=== PATIENT | male | born 1960 | race Caucasian/White ===

== ENCOUNTER → 2019-07-27 08:29 | Outpatient (BNVA) | payer MEDICARE, MEDICAID, SELFPAY | PROVIDERS: Family Provider Internal Medicine; PCP Internal Medicine; Visit Provider Nurse Practitioner | DX: F20.5 Residual schizophrenia (principal) | CPT/HCPCS: 99203 ==

== ENCOUNTER → 2020-01-11 07:42 | Outpatient (BNVA) | payer MEDICARE, MEDICAID, SELFPAY | PROVIDERS: Family Provider Internal Medicine; PCP Internal Medicine; Visit Provider Nurse Practitioner | DX: F20.5 Residual schizophrenia (principal) | CPT/HCPCS: 99213 ==

== ENCOUNTER → 2020-07-27 07:43 | Outpatient (BNVA) | payer MEDICARE, MEDICAID, SELFPAY | PROVIDERS: Family Provider Internal Medicine; PCP Internal Medicine; Visit Provider Nurse Practitioner | DX: F20.5 Residual schizophrenia (principal) | CPT/HCPCS: 99214 ==

== ENCOUNTER → 2021-01-23 08:12 | Outpatient (BNVA) | payer MEDICARE, MEDICAID, SELFPAY | PROVIDERS: Family Provider Internal Medicine; PCP Internal Medicine; Visit Provider Nurse Practitioner | DX: F20.5 Residual schizophrenia (principal); Z79.899 Other long term (current) drug therapy | CPT/HCPCS: 99214 ==

== ENCOUNTER → 2021-07-02 07:14 | Outpatient (BNVA) | payer MEDICARE, MEDICAID, SELFPAY | PROVIDERS: Family Provider Internal Medicine; PCP Internal Medicine; Visit Provider Nurse Practitioner | DX: F20.5 Residual schizophrenia (principal); Z79.899 Other long term (current) drug therapy | CPT/HCPCS: 99214 ==

== ENCOUNTER → 2021-11-19 11:27 | Outpatient (BNVA) | payer MEDICARE, MEDICAID, OTHER, SELFPAY | PROVIDERS: Family Provider Internal Medicine; PCP Internal Medicine; Visit Provider Podiatrist Foot & Ankle Surgery | DX: E11.42 Type 2 diabetes mellitus with diabetic polyneuropathy (principal); L60.3 Nail dystrophy; I73.9 Peripheral vascular disease, unspecified; M21.41 Flat foot [pes planus] (acquired), right foot; M21.42 Flat foot [pes planus] (acquired), left foot; M20.41 Other hammer toe(s) (acquired), right foot; M20.42 Other hammer toe(s) (acquired), left foot; Z79.84 Long term (current) use of oral hypoglycemic drugs | CPT/HCPCS: 11721; 99203; 99204 ==

== ENCOUNTER → 2021-11-27 08:35 | Outpatient (BNVA) | payer MEDICARE, MEDICAID, OTHER, SELFPAY | PROVIDERS: Family Provider Internal Medicine; PCP Internal Medicine; Visit Provider Nurse Practitioner | DX: Z79.899 Other long term (current) drug therapy (principal); E11.42 Type 2 diabetes mellitus with diabetic polyneuropathy | CPT/HCPCS: 80061; 83036 ==

== ENCOUNTER → 2022-04-30 14:57 | Outpatient (BNVA) | payer MEDICARE, MEDICAID, SELFPAY | PROVIDERS: Family Provider Internal Medicine; PCP Internal Medicine; Visit Provider Podiatrist Foot & Ankle Surgery | DX: E11.42 Type 2 diabetes mellitus with diabetic polyneuropathy (principal); E11.8 Type 2 diabetes mellitus with unspecified complications; L60.3 Nail dystrophy; I73.9 Peripheral vascular disease, unspecified; M21.41 Flat foot [pes planus] (acquired), right foot; M21.42 Flat foot [pes planus] (acquired), left foot; M20.41 Other hammer toe(s) (acquired), right foot; M20.42 Other hammer toe(s) (acquired), left foot | CPT/HCPCS: 11721 ==

== ENCOUNTER → 2022-08-27 10:08 | Outpatient (BNVA) | payer MEDICARE, MEDICAID, SELFPAY | PROVIDERS: Family Provider Internal Medicine; PCP Internal Medicine; Visit Provider Podiatrist Foot & Ankle Surgery | DX: E11.42 Type 2 diabetes mellitus with diabetic polyneuropathy (principal); L60.3 Nail dystrophy; I73.9 Peripheral vascular disease, unspecified; M21.41 Flat foot [pes planus] (acquired), right foot; M21.42 Flat foot [pes planus] (acquired), left foot; M20.41 Other hammer toe(s) (acquired), right foot; M20.42 Other hammer toe(s) (acquired), left foot; Z79.84 Long term (current) use of oral hypoglycemic drugs | CPT/HCPCS: 11721 ==

== ENCOUNTER 2022-10-01 15:08 | Emergency (ER) | payer MEDICARE, MEDICAID, SELFPAY ==
[2022-10-01 15:23] VITALS: BP 194/82; PULSE 92; RESP 18; TEMP 36.8; O2SAT 98; BMI 46.7
--- NOTE | 2022-10-01 15:32 | XR_ITS ---
WS: [id number] XR chest 1V portable [id number] REASON FOR EXAM: Atypical chest pain FINDINGS: Moderate tortuosity and ectasia of the thoracic aorta without aneurysmal dilatation. The heart is not enlarged. Calcified granulomatous disease bilaterally. No active pulmonary parenchymal or pleural disease is noted. Mild scoliosis of the thoracic cervical spine with significant degenerative spondylosis. XR/XR chest 1V portable [id number] IMPRESSION: No acute chest abnormality.
--- NOTE | 2022-10-01 15:32 | ECG_ITS ---
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 Measurements Intervals [place] Rate: 92 P: -20 [place]: 145 QRS: -3 QRSD: 124 T: 63 QT: 372 QTc: 461 Interpretive Statements SINUS RHYTHM ANTEROLATERAL MYOCARDIAL INFARCTION , OF INDETERMINATE AGE [40+ ms Q WAVE IN I/aVL/V3-V6] Compared to ECG 08/07/2018 21:06:05 No significant changes Electronically Signed On 10-01-2022 17:00:54 CDT by Jag Cardona M.D. [id number] f
--- NOTE | 2022-10-01 15:44 | ED_ITS ---
HPI - Chest Pain General: Chief Complaint: Chest Pain Stated Complaint: Cp, SOB Time Seen by Provider: 10/01/22 15:32 Source: patient Mode of arrival: ambulatory History of Present Illness: 61-year-old male presents emergency room with complaint of a funny feeling in his chest. He has had this for the last 2 days. He did take nitro earlier today he thought maybe that that helped some. He is history of diabetes mellitus he has no known history of coronary artery disease there is no documentation in the chart of recent stress testing. He is symptom-free at this time. MD complaint: chest pain Onset (ago): day(s) (3-4) Timing of current episode: episodic Onset: during rest Pain location: left chest Pain radiation: none Severity: mild Quality: tightness and aching Relieving factors: nothing Exacerbating factors: nothing Associated symptoms: Deny abdominal pain, diaphoresis, dyspnea, fever(s), leg edema, nausea, palpitations, sense of impending doom, syncope or vomiting Treatment prior to arrival: none Review of Systems Const: Denies: fever(s), chills or diaphoresis Card: Reports: chest pain; Denies: palpitations, irregular heart rhythm, edema or syncope Resp: Denies: dyspnea or productive cough GI: Denies: abdominal pain, nausea or vomiting : Denies: flank pain, dysuria, urinary frequency or urinary urgency Skin/Breast: Denies: rash or pruritus PFS ED PFSH: Medical History Generalized anxiety disorder On combination antipsychotic drug therapy Psychiatric care Residual schizophrenia Social History Smoking and tobacco status: former smoker Physical Exam Const: GENERAL APPEARANCE: cooperative and comfortable ORIENTATION/CONSCIOUSNESS: Yes awake, Yes oriented to person, Yes oriented to place and Yes oriented to time HENMT: COMMON NORMALS: normocephalic, atraumatic and hearing grossly normal bilaterally HEAD & SCALP: normocephalic and atraumatic Resp: COMMON NORMALS: normal respiratory effort, No retractions, No use of accessory muscles and clear to auscultation bilaterally AUSCULTATION: clear to auscultation bilaterally Cardio: COMMON NORMALS: regular rate, regular rhythm and No murmurs present (Cardio) RATE: regular rate RHYTHM: regular rhythm GI: COMMON NORMALS: Soft to palpation and No hepatosplenomegaly present AUSCULTATION: Yes normoactive bowel sounds PALPATION: Yes Soft to palpation, No Tenderness to palpation present (GI), No Guarding due to palpation present (GI) and Yes No hepatosplenomegaly present Extremity: COMMON NORMALS: normal to inspection, capillary refill normal, no clubbing, cyanosis or edema, no calf tenderness and no pedal edema Neuro: SENSORIUM/ORIENTATION: Yes oriented to person, Yes oriented to place and Yes oriented to time Skin: COMMON NORMALS: no rashes or lesions noted GENERAL SKIN EXAM: no rashes or lesions noted Course Vital Signs: Vital signs: Vital Signs Temperature 98.3 F 10/01/22 18:37 Pulse Rate 67 10/01/22 18:37 Respiratory Rate 16 10/01/22 18:37 Blood Pressure 146/75 10/01/22 18:37 Pulse Oximetry 98 10/01/22 18:37 Oxygen Delivery Me thod Room Air 10/01/22 15:23 MDM - Chest Pain Medical Decision Making EKG does not show any acute ST changes serial cardiac enzymes are negative he is pain-free now has had this for 2 days and there is no evidence of acute coronary syndrome. We will discharge the patient home encouraged him to take baby aspirin daily add isosorbide mononitrate 30 mg daily and set up for outpatient cardiac stress testing. Return if has further chest pain. Medical Records I reviewed the patient's medical records. Lab Data I reviewed the patient's lab results. 10/01/22 15:50 10/01/22 15:50 Radiology Impressions Chest X-Ray 10/01/22 15:32 IMPRESSION: No acute chest abnormality. Laboratory Results WBC 7.8 10^3/uL (4.0-10.0) 10/01/22 15:50 RBC 4.68 10^6/uL (4.1-5.3) 10/01/22 15:50 Hgb 14.5 g/dL (11.7-16.6) 10/01/22 15:50 Hct 40.2 % (42.0-52.0) L 10/01/22 15:50 MCV 85.9 fl (80-94) 10/01/22 15:50 MCH 31.0 pg (28.0-34.0) 10/01/22 15:50 MCHC 36.1 g/dL (30.0-36.0) H 10/01/22 15:50 RDW 11.9 % (12.1-15.1) L 10/01/22 15:50 Plt Count 174 10^3/cmm (130-400) 10/01/22 15:50 MPV 9.3 fL (7.4-10.4) 10/01/22 15:50 Neut % (Auto) 72.9 % 10/01/22 15:50 Lymph % (Auto) 19.1 % 10/01/22 15:50 [place] % (Auto) 6.8 % 10/01/22 15:50 Eos % (Auto) 0.6 % 10/01/22 15:50 Baso % (Auto) 0.3 % 10/01/22 15:50 Neut # (Auto) 5.70 10^3/uL (1.8-7.7) 10/01/22 15:50 Lymph # (Auto) 1.5 10^3/uL (0.8-4.8) 10/01/22 15:50 [place] # (Auto) 0.5 10^3/uL (0.2-0.9) 10/01/22 15:50 Eos # (Auto) 0.1 10^3/uL (0.0-0.8) 10/01/22 15:50 Baso # (Auto) 0.0 10^3/uL (0.0-0.1) 10/01/22 15:50 Nucleated RBC % (auto) 0 % 10/01/22 15:50 Nucleated RBCs # 0.0 /100WBC 10/01/22 15:50 Sodium 127 mmol/L (136-145) L 10/01/22 15:50 Potassium 3.6 mmol/L (3.5-5.1) 10/01/22 15:50 Chloride 91 mmol/L (98-107) L 10/01/22 15:50 Carbon Dioxide 23 mmol/L (22-29) 10/01/22 15:50 Anion Gap 16.6 (5-19) 10/01/22 15:50 BUN 7 mg/dL (8-23) L 10/01/22 15:50 Creatinine 0.6 mg/dL (0.7-1.2) L 10/01/22 15:50 GFR Calculation 136.1 mL/min (90-130) H 10/01/22 15:50 Glucose 168 mg/dL (65-115) H 10/01/22 15:50 Calculated Osmolality 266 mOsm/kg (285-295) L 10/01/22 15:50 Calcium 9.1 mg/dL (8.5-10.5) 10/01/22 15:50 Total Bilirubin 0.7 mg/dL (0.15-1.2) 10/01/22 15:50 AST 19 U/L (0-40) 10/01/22 15:50 ALT 25 U/L (0-41) 10/01/22 15:50 Alkaline Phosphatase 73 U/L (40-130) 10/01/22 15:50 Troponin T Baseline 11 ng/L (0-15) 10/01/22 15:50 Troponin T 120 Minute 9.61 ng/L (0-15) 10/01/22 17:44 Delta Troponin T -1.39 ABS# (0-10) L 10/01/22 17:44 Total Protein 6.7 g/dL (6.6-8.7) 10/01/22 15:50 Albumin 4.2 g/dL (3.5-5.2) 10/01/22 15:50 Globulin 2.5 g/dL (1.3-4.6) 10/01/22 15:50 Discharge Plan Discharge Patient Disposition: Home Clinical Impression: Atypical chest pain, Residual schizophrenia Condition: Stable Prescriptions: New isosorbide mononitrate 30 mg tablet extended release 24 hr 30 mg PO DAILY Qty: 30 0RF aspirin 81 mg tablet,delayed release (DR/EC) 81 mg PO DAILY Qty: 30 0RF No Action amlodipine 5 mg tablet 5 mg PO QAM atorvastatin 20 mg tablet 20 mg PO BEDTIME losartan 100 mg tablet 100 mg PO QAM furosemide [Lasix] 40 mg tablet 40 mg PO QAM tamsulosin 0.4 mg capsule 0.4 mg PO BEDTIME omeprazole 20 mg capsule,delayed release(DR/EC) 20 mg PO QAM olanzapine 15 mg tablet 15 mg PO BID Qty: 60 2RF (DME) Diabetic Shoes with 3 Pairs of Inserts See Rx Instructions .Route .MEDSUPPLY Qty: 1 0RF Rx Instructions: As directed by HOME metformin 500 mg tablet extended release 24 hr 500 mg PO BID Tresiba FlexTouch U-200 200 unit/mL (3 mL) insulin pen 114 unit SUBCUT BEDTIME Rx Instructions: INCREASE BY TWO UNITS EVERY WEEK UNTIL BLOOD SUGAR OF 120 IS ACHIEVED lorazepam 0.5 mg tablet 0.5 mg PO BEDTIME Tylenol Ex Str Rapid Release 500 mg Tablet 1,000 mg PO Q6H PRN (Reason: Pain) Discharge Orders: Discharge ED (Routine); Ordered 10/01/22 Ordered By: Augustine Kinney Referrals: David Biswas DO [Primary Care Provider] - Discharge Diet: Usual diet Patient Instructions: Opioid Safety, Pain Management Activity Restrictions/Additional Instructions: Case management will make arrangements [facility]. Start isosorbide mononitrate daily and baby aspirin daily continue all your other medications as previously prescribed. Return if you have worsening chest pain. Coding Level of Care Code ED Deck Engineer for Demian Braxtno
[2022-10-01 15:58] VITALS: BP 127/76; PULSE 87; RESP 16; O2SAT 97
--- NOTE | 2022-10-01 16:02 | PC.NURSE ---
Pt family states to RN that the pt is on heavy psych medications. Family states that pt has hx of mental health diagnoses and has a pharmacy in [place]
[2022-10-01 16:09] LABS: Basophils % 0.3 %; Eosinophils # 0.1 10^3/uL (0.0-0.8); Eosinophils % 0.6 %; Hematocrit 40.2 % (42.0-52.0); Hemoglobin 14.5 g/dL (11.7-16.6); Lymphocytes # 1.5 10^3/uL (0.8-4.8); Lymphocytes % 19.1 %; Mean Corpuscular HGB Conc 36.1 g/dL (30.0-36.0); Mean Corpuscular Volume 85.9 fl (80-94); Mean Platelet Volume 9.3 fL (7.4-10.4); Monocytes # 0.5 10^3/uL (0.2-0.9); Monocytes % 6.8 %; Neutrophils % 72.9 %; Nucleated Red Blood Cells % 0 %; Platelet Count 174 10^3/cmm (130-400); Red Blood Count 4.68 10^6/uL (4.1-5.3); Red Cell Distribution Width 11.9 % (12.1-15.1); White Blood Count 7.8 10^3/uL (4.0-10.0)
[2022-10-01 16:17] VITALS: BP 127/76; PULSE 89; RESP 16; O2SAT 97
[2022-10-01 16:40] LABS: Alanine Aminotransferase 25 U/L (0-41); Albumin Level 4.2 g/dL (3.5-5.2); Alkaline Phosphatase 73 U/L (40-130); Anion Gap 16.6 (5-19); Aspartate Amino Transferase 19 U/L (0-40); Blood Urea Nitrogen 7 mg/dL (8-23); Calcium 9.1 mg/dL (8.5-10.5); Carbon Dioxide 23 mmol/L (22-29); Chloride 91 mmol/L (98-107); Globulin 2.5 g/dL (1.3-4.6); Glomerular Filtration Rate 136.1 mL/min (90-130); Glucose 168 mg/dL (65-115); Osmolality Calculated 266 mOsm/kg (285-295); Potassium 3.6 mmol/L (3.5-5.1); Sodium 127 mmol/L (136-145); Total Bilirubin 0.7 mg/dL (0.15-1.2); Total Protein 6.7 g/dL (6.6-8.7)
[2022-10-01 16:45] LABS: Troponin(5th) Baseline 11 ng/L (0-15)
[2022-10-01 16:55] VITALS: BP 158/71; PULSE 80; RESP 16; O2SAT 97
--- NOTE | 2022-10-01 17:32 | ECG_ITS ---
[facility] Test Date: 2022-10-01 Pat Name: Brett Becerra Department: Room: Gender: Male [employer] [place]: : 1960 Requested By: Augustine Phelan Order Number: [id number] Joy MD: Gayla Alva M.D. Measurements Intervals [place] Rate: 68 P: 32 NM: 204 QRS: 12 QRSD: 125 T: 62 QT: 389 QTc: 416 Interpretive Statements SINUS RHYTHM WITH OCCASIONAL SUPRAVENTRICULAR PREMATURE COMPLEXES PROBABLE ANTEROLATERAL MYOCARDIAL INFARCTION , OF INDETERMINATE AGE [35 ms Q WAVE IN I/aVL/V3-V6] Compared to ECG 10/01/2022 15:28:12 No significant changes Electronically Signed On 10-02-2022 6:42:03 CDT by Gayla Alva M.D. [id number]
[2022-10-01 17:36] VITALS: BP 146/75; PULSE 67; RESP 16; O2SAT 98
[2022-10-01 18:07] LABS: Troponin 5 2HR 9.61 ng/L (0-15)
[2022-10-01 18:25] LABS: Troponin 5 2HR Delta -1.39 ABS# (0-10)
[2022-10-01 18:37] VITALS: BP 146/75; PULSE 67; RESP 16; TEMP 36.8; O2SAT 98
--- NOTE | 2022-10-02 11:34 | DCPLANNER ---
outpatient pharmacy manager had message to schedule an outpatient stress test for patient. outpatient pharmacy manager faxed signed order to centralized scheduling, who will call patient with appointment information.
== END 2022-10-01 18:38 | disposition home or self-care (01) ==
PROVIDERS: Emergency Provider Family Medicine; PCP Internal Medicine
DX: R07.89 Other chest pain (principal); F20.5 Residual schizophrenia
CPT/HCPCS: 36415; 71045; 80053; 84484; 85025; 93005; 99285

== ENCOUNTER 2022-10-22 19:02 | Emergency (ER) | payer MEDICARE, MEDICAID, SELFPAY ==
--- NOTE | 2022-10-22 19:28 | ECG_ITS ---
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 Measurements Intervals [place] Rate: 66 P: 68 CT: 192 QRS: -12 QRSD: 126 T: 52 QT: 395 QTc: 417 Interpretive Statements SINUS RHYTHM MODERATE VOLTAGE CRITERIA FOR LVH, CONSIDER NORMAL VARIANT [MEETS CRITERIA IN ONE OF: R(aVL), S(V1), R(V5), R(V5/V6)+S(V1)] ANTEROLATERAL MYOCARDIAL INFARCTION , PROBABLY OLD [40+ ms Q WAVE IN I/aVL/V3-V6] Compared to ECG 10/01/2022 17:46:31 No significant changes Electronically Signed On 10-22-2022 23:27:58 CDT by Jag Cardona M.D. [email or web address]/[id number] f
[2022-10-22 19:29] VITALS: BP 176/78; PULSE 68; RESP 18; TEMP 36.8; O2SAT 98; BMI 46.0
--- NOTE | 2022-10-22 19:29 | XRR_ITS ---
PROCEDURE INFORMATION: Exam: XR Chest Exam date and time: 10/22/2022 7:34 PM Age: 62 years old Clinical indication: Shortness of breath; Additional info: SOB TECHNIQUE: Imaging protocol: Radiologic exam of the chest. Views: 1 view. COMPARISON: CR XR chest 1V portable [id number] 10/01/2022 3:36 PM FINDINGS: Lungs: Unremarkable. No consolidation. Pleural spaces: Unremarkable. No pleural effusion. No pneumothorax. Heart/Mediastinum: Unremarkable. No cardiomegaly. Bones/joints: Unremarkable. XR/XR chest 1V portable [id number] IMPRESSION: No acute findings.
[2022-10-22 19:50] LABS: Basophils % 0.3 %; Eosinophils # 0.1 10^3/uL (0.0-0.8); Eosinophils % 1.3 %; Hematocrit 38.7 % (42.0-52.0); Hemoglobin 13.8 g/dL (11.7-16.6); Lymphocytes # 1.7 10^3/uL (0.8-4.8); Lymphocytes % 23.6 %; Mean Corpuscular HGB Conc 35.7 g/dL (30.0-36.0); Mean Corpuscular Hemoglobin 30.9 pg (28.0-34.0); Mean Corpuscular Volume 86.8 fl (80-94); Mean Platelet Volume 9.5 fL (7.4-10.4); Monocytes # 0.6 10^3/uL (0.2-0.9); Monocytes % 7.9 %; Neutrophils # 4.75 10^3/uL (1.8-7.7); Neutrophils % 66.6 %; Nucleated Red Blood Cells % 0 %; Platelet Count 173 10^3/cmm (130-400); Red Blood Count 4.46 10^6/uL (4.1-5.3); Red Cell Distribution Width 11.9 % (12.1-15.1); White Blood Count 7.1 10^3/uL (4.0-10.0)
[2022-10-22 20:00] VITALS: BP 188/77; PULSE 69; RESP 20; TEMP 36.6; O2SAT 97
[2022-10-22 20:05] LABS: INR 0.96 (0.8-1.2)
[2022-10-22 20:12] LABS: Troponin(5th) Baseline 9 ng/L (0-15)
[2022-10-22 20:17] LABS: Alanine Aminotransferase 24 U/L (0-41); Alkaline Phosphatase 73 U/L (40-130); Aspartate Amino Transferase 18 U/L (0-40); Blood Urea Nitrogen 6 mg/dL (8-23); Calcium 9.3 mg/dL (8.5-10.5); Carbon Dioxide 24 mmol/L (22-29); Chloride 89 mmol/L (98-107); Globulin 2.6 g/dL (1.3-4.6); Glomerular Filtration Rate 135.6 mL/min (90-130); Glucose 198 mg/dL (65-115); NT Pro B Type Natriuretic Pept 36 pg/mL (0-125); Osmolality Calculated 261 mOsm/kg (285-295); Sodium 124 mmol/L (136-145); Total Bilirubin 0.7 mg/dL (0.15-1.2); Total Protein 6.6 g/dL (6.6-8.7)
[2022-10-22 22:18] LABS: Troponin 5 2HR 9.21 ng/L (0-15)
[2022-10-22 22:20] LABS: Troponin 5 2HR Delta 0.21 ABS# (0-10)
--- NOTE | 2022-10-22 23:54 | ECG_ITS ---
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 Measurements Intervals [place] Rate: 63 P: 56 [place]: 206 QRS: 7 QRSD: 117 T: 57 QT: 407 QTc: 417 Interpretive Statements SINUS RHYTHM POSSIBLE LATERAL MYOCARDIAL INFARCTION , PROBABLY OLD [30 ms Q WAVE IN I/aVL/V5/V6] Compared to ECG 10/22/2022 19:28:01 No significant changes Electronically Signed On 10-23-2022 16:09:49 CDT by Blas Quijano M.D. [email or web address] [facility].HistoPathway/store/OM/[id number]
--- NOTE | 2022-10-23 | W.ED.CHESTPA ---
HPI - Chest Pain General: Chief Complaint: Chest Pain Stated Complaint: SOB Time Seen by Provider: 10/22/22 23:34 Source: patient and EMS Mode of arrival: EMS Limitations: no limitations History of Present Illness: 62-year-old male with a history of severe anxiety states at night start having some anxiety attacks he states that felt like his previous panic attacks and having chest pain shortness of breath he has since taken his Ativan he states his symptoms resolved he feels much improved denies any pain currently. Associated symptoms: Deny abdominal pain, dyspnea, fever(s), nausea or vomiting Review of Systems Const: Denies: fever(s), chills, body aches or change in appetite ENMT: Denies: throat pain or dental pain Card: Reports: chest pain Resp: Denies: dyspnea GI: Denies: abdominal pain, nausea, vomiting or diarrhea : Denies: dysuria Musc: Denies: neck pain or back pain Skin/Breast: Denies: rash Neuro: Denies: headache(s) Psych: Reports: anxiety; Denies: depression PFSH ED PFSH: Medical History Generalized anxiety disorder On combination antipsychotic drug therapy Psychiatric care Residual schizophrenia Social History Smoking and tobacco status: former smoker Physical Exam Const: COMMON NORMALS: no acute distress, patient oriented x3 and healthy appearing HENMT: COMMON NORMALS: normocephalic and atraumatic HEAD & SCALP: normocephalic and atraumatic Eye: COMMON NORMALS: Equal, round and reactive pupils present and EOMs intact bilaterally PUPIL: Yes Equal, round and reactive pupils present Neck/C-Spine: COMMON NORMALS: full ROM and supple Chest: COMMONS NORMALS: normal inspection of the chest and normal palpation of entire chest wall Resp: COMMON NORMALS: normal respiratory effort, No retractions, No use of accessory muscles and clear to auscultation bilaterally AUSCULTATION: clear to auscultation bilaterally Cardio: COMMON NORMALS: regular rate, regular rhythm and No murmurs present (Cardio) RATE: regular rate RHYTHM: regular rhythm GI: COMMON NORMALS: Normal to inspection, nondistended, normoactive bowel sounds present, Soft to palpation, non-tender and no masses PALPATION: Yes Soft to palpation Extremity: COMMON NORMALS: normal to inspection and full ROM Neuro: COMMON NORMALS: patient oriented x3, moves all extremities and no focal motor deficits Psych: COMMON NORMALS: mental status grossly normal, Normal thought process present and cooperative THOUGHT PROCESS: Normal thought process present Skin: COMMON NORMALS: no rashes or lesions noted and no wounds GENERAL SKIN EXAM: no rashes or lesions noted Course Vital Signs: Vital signs: Vital Signs Temperature 98 F 10/22/22 20:00 Pulse Rate 69 10/22/22 20:00 Respiratory Rate 20 H 10/22/22 20:00 Blood Pressure 188/77 10/22/22 20:00 Pulse Oximetry 97 10/22/22 20:00 Oxygen Delivery Me thod Room Air 10/22/22 19:29 MDM - Chest Pain Medical Decision Making Patient presents here with an anxiety attack likely causing his chest pain has been chest pain-free here his troponins are normal he does have a hyponatremia has had hyponatremia in the past he is not altered he is stable for discharge he is to have his sodium rechecked by his PCP he is return if worsening he understands agrees to plan. Medical Records I reviewed the patient's medical records. Lab Data I reviewed the patient's lab results. 10/22/22 19:40 10/23/22 00:20 Radiology Impressions Chest X-Ray 10/22/22 19:29 IMPRESSION: No acute findings. Laboratory Results WBC 7.1 10^3/uL (4.0-10.0) 10/22/22 19:40 RBC 4.46 10^6/uL (4.1-5.3) 10/22/22 19:40 Hgb 13.8 g/dL (11.7-16.6) 10/22/22 19:40 Hct 38.7 % (42.0-52.0) L 10/22/22 19:40 MCV 86.8 fl (80-94) 10/22/22 19:40 MCH 30.9 pg (28.0-34.0) 10/22/22 19:40 MCHC 35.7 g/dL (30.0-36.0) 10/22/22 19:40 RDW 11.9 % (12.1-15.1) L 10/22/22 19:40 Plt Count 173 10^3/cmm (130-400) 10/22/22 19:40 MPV 9.5 fL (7.4-10.4) 10/22/22 19:40 Neut % (Auto) 66.6 % 10/22/22 19:40 Lymph % (Auto) 23.6 % 10/22/22 19:40 [place] % (Auto) 7.9 % 10/22/22 19:40 Eos % (Auto) 1.3 % 10/22/22 19:40 Baso % (Auto) 0.3 % 10/22/22 19:40 Neut # (Auto) 4.75 10^3/uL (1.8-7.7) 10/22/22 19:40 Lymph # (Auto) 1.7 10^3/uL (0.8-4.8) 10/22/22 19:40 [place] # (Auto) 0.6 10^3/uL (0.2-0.9) 10/22/22 19:40 Eos # (Auto) 0.1 10^3/uL (0.0-0.8) 10/22/22 19:40 Baso # (Auto) 0.0 10^3/uL (0.0-0.1) 10/22/22 19:40 Nucleated RBC % (auto) 0 % 10/22/22 19:40 Nucleated RBCs # 0.0 /100WBC 10/22/22 19:40 PT 13.00 SECONDS (12.1-14.9) 10/22/22 19:40 INR 0.96 (0.8-1.2) 10/22/22 19:40 Sodium 125 mmol/L (136-145) L 10/23/22 00:20 Potassium 4.0 mmol/L (3.5-5.1) 10/22/22 19:40 Chloride 89 mmol/L (98-107) L 10/22/22 19:40 Carbon Dioxide 24 mmol/L (22-29) 10/22/22 19:40 Anion Gap 15.0 (5-19) 10/22/22 19:40 BUN 6 mg/dL (8-23) L 10/22/22 19:40 Creatinine 0.6 mg/dL (0.7-1.2) L 10/22/22 19:40 GFR Calculation 135.6 mL/min (90-130) H 10/22/22 19:40 Glucose 198 mg/dL (65-115) H 10/22/22 19:40 Calculated Osmolality 261 mOsm/kg (285-295) L 10/22/22 19:40 Calcium 9.3 mg/dL (8.5-10.5) 10/22/22 19:40 Total Bilirubin 0.7 mg/dL (0.15-1.2) 10/22/22 19:40 AST 18 U/L (0-40) 10/22/22 19:40 ALT 24 U/L (0-41) 10/22/22 19:40 Alkaline Phosphatase 73 U/L (40-130) 10/22/22 19:40 Troponin T Baseline 9 ng/L (0-15) 10/22/22 19:40 Troponin T 120 Minute 9.21 ng/L (0-15) 10/22/22 21:38 Delta Troponin T 0.21 ABS# (0-10) 10/22/22 21:38 Troponin T Hi Sens 6Hr 12.27 ng/L (0-15) 10/23/22 00:20 Troponin T Hi Sens 6Hr Delta 3.27 ng/L (0-12) 10/23/22 00:20 NT-Pro-B Natriuret Pep 36 pg/mL (0-125) 10/22/22 19:40 Total Protein 6.6 g/dL (6.6-8.7) 10/22/22 19:40 Albumin 4.0 g/dL (3.5-5.2) 10/22/22 19:40 Globulin 2.6 g/dL (1.3-4.6) 10/22/22 19:40 Discharge Plan Discharge Patient Disposition: Home Clinical Impression: Chest pain, Generalized anxiety disorder, Hyponatremia Condition: Stable Prescriptions: No Action amlodipine 5 mg tablet 5 mg PO QAM atorvastatin 20 mg tablet 20 mg PO BEDTIME losartan 100 mg tablet 100 mg PO QAM furosemide [Lasix] 40 mg tablet 40 mg PO QAM tamsulosin 0.4 mg capsule 0.4 mg PO BEDTIME omeprazole 20 mg capsule,delayed release(DR/EC) 20 mg PO QAM olanzapine 15 mg tablet 15 mg PO BID Qty: 60 2RF (DME) Diabetic Shoes with 3 Pairs of Inserts See Rx Instructions .Route .MEDSUPPLY Qty: 1 0RF Rx Instructions: As directed by HOME amlodipine 5 mg tablet atorvastatin 20 mg tablet lorazepam 0.5 mg tablet losartan 100 mg tablet metformin 500 mg tablet extended release 24 hr PO olanzapine 15 mg tablet tamsulosin 0.4 mg capsule PO omeprazole 20 mg capsule,delayed release(DR/EC) (DME) TechLITE Pen Needle 32 gauge x 1/4 needle MISCELLANEOUS Tresiba FlexTouch U-200 200 unit/mL (3 mL) insulin pen SUBCUT metformin 500 mg tablet extended release 24 hr 500 mg PO BID Tresiba FlexTouch U-200 200 unit/mL (3 mL) insulin pen 114 unit SUBCUT BEDTIME Rx Instructions: INCREASE BY TWO UNITS EVERY WEEK UNTIL BLOOD SUGAR OF 120 IS ACHIEVED lorazepam 0.5 mg tablet 0.5 mg PO BEDTIME Tylenol Ex Str Rapid Release 500 mg Tablet 1,000 mg PO Q6H PRN (Reason: Pain) isosorbide mononitrate 30 mg tablet extended release 24 hr 30 mg PO DAILY Qty: 30 0RF aspirin 81 mg tablet,delayed release (DR/EC) 81 mg PO DAILY Qty: 30 0RF Discharge Orders: Discharge ED (Routine); Ordered 10/23/22 Ordered By: Sofia Weiss Referrals: David Biswas DO [Primary Care Provider] - 1-3 days Discharge Diet: Advance as tolerated Discharge Activity: Resume usual activity Patient Instructions: Chest Pain (ED), Hyponatremia (ED) Coding Level of Care Code ED Minilab Operator for Demian Braxton
[2022-10-23 00:47] LABS: Sodium 125 mmol/L (136-145)
[2022-10-23 00:50] LABS: Troponin 5 6HR 12.27 ng/L (0-15)
[2022-10-23 00:54] LABS: Troponin 5 6HR Delta 3.27 ng/L (0-12)
[2022-10-23 01:06] VITALS: BP 145/79; PULSE 70; RESP 16; O2SAT 96
== END 2022-10-23 01:07 | disposition home or self-care (01) ==
PROVIDERS: Emergency Provider Emergency Medicine; PCP Internal Medicine
DX: F41.1 Generalized anxiety disorder (principal); R07.9 Chest pain, unspecified; E87.1 Hypo-osmolality and hyponatremia; Z79.899 Other long term (current) drug therapy; Z79.82 Long term (current) use of aspirin; Z87.891 Personal history of nicotine dependence
CPT/HCPCS: 36415; 71045; 80053; 83880; 84295; 84484; 85025; 85610; 93005; 99285

== ENCOUNTER 2022-12-26 11:02 | Outpatient (CLI) | payer MEDICARE, MEDICAID, SELFPAY ==
[2022-12-26 12:19] LABS: Estmated Average Glucose 177; Hemoglobin A1C 7.8 % (4.0-6.0)
[2022-12-26 12:25] LABS: Chol HDL Ratio 2.24 mg/dL (1.0-5.00); Cholesterol 94 mg/dL (0-200); HDL Cholesterol 42 mg/dL (60-100); LDL Cholesterol Calculated 17 mg/dL (50-129); Triglycerides 173 mg/dL (0-150)
== END 2022-12-26 11:03 | disposition home or self-care (01) ==
LOC: LAB 11:04
PROVIDERS: PCP Internal Medicine; Visit Provider Nurse Practitioner
DX: Z79.899 Other long term (current) drug therapy (principal)
CPT/HCPCS: 36415; 80061; 83036

== ENCOUNTER → 2023-05-15 12:04 | Outpatient (BNVA) | payer MEDICARE, MEDICAID, SELFPAY | PROVIDERS: PCP Internal Medicine; Visit Provider Podiatrist Foot & Ankle Surgery | DX: E11.8 Type 2 diabetes mellitus with unspecified complications (principal); E11.42 Type 2 diabetes mellitus with diabetic polyneuropathy; L60.3 Nail dystrophy; I73.9 Peripheral vascular disease, unspecified; M21.41 Flat foot [pes planus] (acquired), right foot; M21.42 Flat foot [pes planus] (acquired), left foot; M20.41 Other hammer toe(s) (acquired), right foot; M20.42 Other hammer toe(s) (acquired), left foot; L84 Corns and callosities; Z79.84 Long term (current) use of oral hypoglycemic drugs | CPT/HCPCS: 11056; 11721; 99213 ==

== ENCOUNTER → 2023-06-10 09:51 | Outpatient (BNVA) | payer MEDICARE, MEDICAID, SELFPAY | PROVIDERS: PCP Internal Medicine; Visit Provider Podiatrist Foot & Ankle Surgery | DX: E11.8 Type 2 diabetes mellitus with unspecified complications (principal); E11.42 Type 2 diabetes mellitus with diabetic polyneuropathy; I73.9 Peripheral vascular disease, unspecified; M21.41 Flat foot [pes planus] (acquired), right foot; M21.42 Flat foot [pes planus] (acquired), left foot; M20.41 Other hammer toe(s) (acquired), right foot; M20.42 Other hammer toe(s) (acquired), left foot; Z79.84 Long term (current) use of oral hypoglycemic drugs; Z79.4 Long term (current) use of insulin | CPT/HCPCS: 99213 ==

== ENCOUNTER → 2023-09-30 10:30 | Outpatient (BNVA) | payer MEDICARE, MEDICAID, SELFPAY | PROVIDERS: PCP Internal Medicine; Visit Provider Podiatrist Foot & Ankle Surgery | DX: E11.8 Type 2 diabetes mellitus with unspecified complications (principal); E11.42 Type 2 diabetes mellitus with diabetic polyneuropathy; I73.9 Peripheral vascular disease, unspecified; M21.41 Flat foot [pes planus] (acquired), right foot; M21.42 Flat foot [pes planus] (acquired), left foot; M20.41 Other hammer toe(s) (acquired), right foot; M20.42 Other hammer toe(s) (acquired), left foot; L60.3 Nail dystrophy; Z79.84 Long term (current) use of oral hypoglycemic drugs; Z79.4 Long term (current) use of insulin | CPT/HCPCS: 11721 ==

== ENCOUNTER → 2024-01-06 10:12 | Outpatient (BNVA) | payer MEDICARE, MEDICAID, OTHER, SELFPAY | PROVIDERS: PCP Internal Medicine; Visit Provider Podiatrist Foot & Ankle Surgery | DX: E11.8 Type 2 diabetes mellitus with unspecified complications (principal); E11.42 Type 2 diabetes mellitus with diabetic polyneuropathy; I73.9 Peripheral vascular disease, unspecified; L60.3 Nail dystrophy; Z79.84 Long term (current) use of oral hypoglycemic drugs; Z79.4 Long term (current) use of insulin | CPT/HCPCS: 11721 ==

== ENCOUNTER → 2024-04-11 10:45 | Outpatient (BNVA) | payer MEDICARE, MEDICAID, SELFPAY | PROVIDERS: PCP Internal Medicine; Visit Provider Podiatrist Foot & Ankle Surgery | DX: E11.8 Type 2 diabetes mellitus with unspecified complications (principal); E11.42 Type 2 diabetes mellitus with diabetic polyneuropathy; I73.9 Peripheral vascular disease, unspecified; L60.3 Nail dystrophy; L84 Corns and callosities; L98.499 Non-pressure chronic ulcer of skin of other sites with unspecified severity; I87.2 Venous insufficiency (chronic) (peripheral); L03.116 Cellulitis of left lower limb; L03.115 Cellulitis of right lower limb; Z79.84 Long term (current) use of oral hypoglycemic drugs; Z79.4 Long term (current) use of insulin | CPT/HCPCS: 11056; 11721; 99213 ==

== ENCOUNTER → 2024-04-15 10:29 | Outpatient (BNVA) | payer MEDICARE, MEDICAID, SELFPAY | PROVIDERS: PCP Internal Medicine; Visit Provider Podiatrist Foot & Ankle Surgery | DX: E11.42 Type 2 diabetes mellitus with diabetic polyneuropathy (principal); I73.9 Peripheral vascular disease, unspecified; I87.2 Venous insufficiency (chronic) (peripheral); L03.116 Cellulitis of left lower limb; L03.115 Cellulitis of right lower limb; E11.621 Type 2 diabetes mellitus with foot ulcer; L97.818 Non-pressure chronic ulcer of other part of right lower leg with other specified severity; L97.828 Non-pressure chronic ulcer of other part of left lower leg with other specified severity; Z79.4 Long term (current) use of insulin; Z79.84 Long term (current) use of oral hypoglycemic drugs | CPT/HCPCS: 99213 ==

== ENCOUNTER → 2024-04-22 12:32 | Outpatient (BNVA) | payer MEDICARE, MEDICAID, SELFPAY | PROVIDERS: PCP Internal Medicine; Visit Provider Podiatrist Foot & Ankle Surgery | DX: E11.42 Type 2 diabetes mellitus with diabetic polyneuropathy (principal); I73.9 Peripheral vascular disease, unspecified; L98.499 Non-pressure chronic ulcer of skin of other sites with unspecified severity; I87.2 Venous insufficiency (chronic) (peripheral); L03.116 Cellulitis of left lower limb; L03.115 Cellulitis of right lower limb; Z79.84 Long term (current) use of oral hypoglycemic drugs; Z79.4 Long term (current) use of insulin | CPT/HCPCS: 99213 ==

== ENCOUNTER 2024-06-08 10:48 | Emergency (ER) | payer MEDICARE, MEDICAID, SELFPAY ==
[2024-06-08 10:49] VITALS: BP 175/97; PULSE 94; RESP 18; TEMP 36.4; O2SAT 95
--- NOTE | 2024-06-08 11:08 | XRR_ITS ---
PROCEDURE INFORMATION: Exam: XR Right Forearm Exam date and time: 06/08/2024 11:24 AM Age: 63 years old Clinical indication: Pain and injury or trauma; Fall; Blunt trauma (contusions or hematomas); Arm, lower; Lower or forearm; Injury details: PT states he fell on right forearm today and has pain on distal ulnar side; Additional info: Pain ulnar side distal TECHNIQUE: Imaging protocol: Radiologic exam of the right forearm. Views: 2 views. COMPARISON: No relevant prior studies available. FINDINGS: Bones/joints: Normal. No displaced fracture. No lytic or sclerotic lesion. Soft tissues: Normal. XR/XR forearm RT 2V [id number] IMPRESSION: No acute findings.
--- NOTE | 2024-06-08 11:09 | W.ED.EXTPRO ---
HPI - Extremity Problem General: Chief complaint: Extremity Injury, Upper Stated complaint: Fell, R Wrist Pain Time Seen by Provider: 06/08/24 11:05 Source: patient Mode of arrival: EMS Limitations: no limitations History of Present Illness: This patient presents to the emergency department via EMS. He states that on Thursday he fell against the door frame and he has had continued pain in his right forearm close to his wrist. He states he is able to do all the things he wants to do but he still continues to have pain in that region and therefore is here for evaluation. He is right-handed. He denies any other injuries. There was no syncope or passing out related to his fall against a door frame. He did not hit his head or suffer a loss of consciousness. MD Complaint: extremity pain Related Data Home Medications ?Medication ?Instructions ?Recorded ?Confirmed losartan 100 mg tablet 100 mg PO QAM 07/26/19 06/08/24 amlodipine 5 mg tablet 5 mg PO QAM 10/17/20 06/08/24 atorvastatin 20 mg tablet 20 mg PO BEDTIME 10/17/20 06/08/24 acetaminophen 500 mg tablet 1,000 mg PO Q6H PRN Pain 10/01/22 06/08/24 insulin degludec 200 unit/mL (3 138 unit SUBCUT QPM 10/22/22 06/08/24 mL) subcutaneous pen (Tresiba FlexTouch U-200 insulin) metformin 500 mg tablet,extended 500 mg PO BID 10/22/22 06/08/24 release 24 hr omeprazole 20 mg capsule,delayed 20 mg PO DAILY 10/22/22 06/08/24 release tamsulosin 0.4 mg capsule 0.4 mg PO DAILY 10/22/22 06/08/24 Previous Rx's ?Medication ?Instructions ?Recorded olanzapine 15 mg tablet 15 mg PO BID #60 tabs 04/05/24 lorazepam 0.5 mg tablet 0.5 mg PO BEDTIME #40 tabs 05/02/24 Allergies Allergy/AdvReac Type Severity Reaction Status Date / Time Penicillins Allergy Unknown Verified 04/22/24 13:33 Review of Systems General: Reports: 10 or more systems reviewed and unremarkable except in HPI and below Musc: Reports: extremity pain [facility] ED PFSH: Medical History Generalized anxiety disorder Psychiatric care On combination antipsychotic drug therapy Residual schizophrenia Social History Smoking and tobacco/nicotine status: former use of tobacco/nicotine Physical Exam Narrative: EXAM NARRATIVE: He is alert makes good eye contact and appears to be comfortable. He answers questions appropriately. Const: COMMON NORMALS: no acute distress GENERAL APPEARANCE: cooperative and comfortable HENMT: COMMON NORMALS: Normal nasal mucous membranes and turbinates present and moist oral mucous membranes FACE & SINUS: normal facial exam NOSE: Normal nasal mucous membranes and turbinates present Eye: COMMON NORMALS: Equal, round and reactive pupils present and conjunctivae normal CONJUNCTIVA: Yes conjunctivae normal PUPIL: Yes Equal, round and reactive pupils present Neck/C-Spine: COMMON NORMALS: full ROM Resp: COMMON NORMALS: normal respiratory effort and No use of accessory muscles EFFORT & INSPECTION: Yes able to speak in complete sentences Cardio: COMMON NORMALS: Peripheral pulses 2+ throughout PERIPHERAL PULSES: Peripheral pulses 2+ throughout Extremity: NARRATIVE EXTREMITY EXAM: Examination with attention to his right upper extremity reveals normal in appearance without any deformity. He has mild tenderness to the distal ulnar region of his forearm without any ecchymosis skin abrasion skin lacerations etc. He is able to range his right forearm both flexion extension and normal full range of motion as well as supination and pronation. He is able to flex and extend his right wrist. There is no distal discomfort there is no actual tenderness or pain in his wrist joint. He is able to move all his fingers normally. He has intact sensation and good capillary refill. Neuro: COMMON NORMALS: moves all extremities, no focal motor deficits and no sensory deficits noted Course Reevaluation(s): Reevaluation #1: Patient remained stable. I reviewed the lack of any evidence of bony injury dislocation etc. with the patient. He is stable at this time to be discharged for outpatient care and return precautions. Time: 12:09 Vital Signs: Vital signs: Vital Signs Temperature 97.6 F 06/08/24 10:49 Pulse Rate 86 06/08/24 11:51 Respiratory Rate 18 06/08/24 10:49 Blood Pressure 172/77 06/08/24 11:51 Pulse Oximetry 95 06/08/24 11:51 Oxygen Delivery Me thod Room Air 06/08/24 10:49 MDM - Extremity (Nontraumatic) Medical Decision Making This patient presented as noted in the HPI. The relatively minor trauma to his right distal forearm. No other injury. His clinical examination is reassuring without any evidence to suggest a acute fracture or dislocation. Imaging was obtained to establish there was no occult fracture which was unremarkable. The patient is currently stable to be discharged with outpatient follow-up and ER return precautions. Lab Data Radiology Impressions Forearm X-Ray 06/08/24 11:08 IMPRESSION: No acute findings. All radiology interpretation(s) finalized by discharge Discharge Plan Discharge Patient Disposition: Home Clinical Impression: Contusion of right forearm Qualifiers: Encounter type: initial encounter Qualified Code(s): S50.11XA - Contusion of right forearm, initial encounter Condition: Stable Prescriptions: No Action amlodipine 5 mg tablet 5 mg PO QAM atorvastatin 20 mg tablet 20 mg PO BEDTIME losartan 100 mg tablet 100 mg PO QAM olanzapine 15 mg tablet 15 mg PO BID Qty: 60 2RF lorazepam 0.5 mg tablet 0.5 mg PO BEDTIME Qty: 40 2RF Rx Instructions: 1 tab at bedtime and daily as needed for severe anxiety and panic a quantity of 40 to last the month metformin 500 mg tablet extended release 24 hr 500 mg PO BID tamsulosin 0.4 mg capsule 0.4 mg PO DAILY omeprazole 20 mg capsule,delayed release(DR/EC) 20 mg PO DAILY insulin degludec [Tresiba FlexTouch U-200] 200 unit/mL (3 mL) insulin pen 138 unit SUBCUT QPM acetaminophen [Tylenol Ex Str Rapid Release] 500 mg Tablet 1,000 mg PO Q6H PRN (Reason: Pain) Discharge Orders: Discharge ED (Routine); Ordered 06/08/24 Ordered By: Jeison Paniagua Discharge Diet: Usual diet Discharge Activity: Resume usual activity and Increase activity as tolerated Patient Instructions: Opioid Safety, Pain Management Activity Restrictions/Additional Instructions: As we discussed when you are in the emergency department there is no evidence of broken or dislocated bone in your right wrist or forearm. Your pain is due to a bruise or soft tissue injury and should improve over the next several days. If you continue to have pain after a week or more or if the pain increases or you have other symptoms you should return to this emergency department or to your regular doctor for reevaluation. Print Language: Cymro Coding Level of Care Code ED Stunt Performer for Demian Braxton
[2024-06-08 11:51] VITALS: BP 172/77; PULSE 86; O2SAT 95
[2024-06-08 12:25] VITALS: PULSE 88; O2SAT 94
== END 2024-06-08 12:26 | disposition home or self-care (01) ==
PROVIDERS: Emergency Provider Emergency Medicine
DX: S50.11XA Contusion of right forearm, initial encounter (principal); Z79.84 Long term (current) use of oral hypoglycemic drugs; Z87.891 Personal history of nicotine dependence; W19.XXXA Unspecified fall, initial encounter
CPT/HCPCS: 73090; 99283

== ENCOUNTER → 2024-07-25 10:42 | Outpatient (BNVA) | payer MEDICARE, MEDICAID, SELFPAY | PROVIDERS: Visit Provider Podiatrist Foot & Ankle Surgery | DX: E11.8 Type 2 diabetes mellitus with unspecified complications (principal); E11.42 Type 2 diabetes mellitus with diabetic polyneuropathy; I73.9 Peripheral vascular disease, unspecified; L98.499 Non-pressure chronic ulcer of skin of other sites with unspecified severity; I87.2 Venous insufficiency (chronic) (peripheral); L60.3 Nail dystrophy; Z79.84 Long term (current) use of oral hypoglycemic drugs; Z79.4 Long term (current) use of insulin | CPT/HCPCS: 11721; 29581 ==

== ENCOUNTER → 2024-08-10 14:00 | Outpatient (BNVA) | payer MEDICARE, MEDICAID, SELFPAY | PROVIDERS: PCP Nurse Practitioner Family; Visit Provider Nurse Practitioner Family | DX: E11.9 Type 2 diabetes mellitus without complications (principal); L60.3 Nail dystrophy; Z79.899 Other long term (current) drug therapy | CPT/HCPCS: 80053; 80061; 83036; 84443; 85025 ==

== ENCOUNTER → 2024-08-31 13:20 | Outpatient (BNVA) | payer MEDICARE, MEDICAID, SELFPAY | PROVIDERS: PCP Nurse Practitioner Family; Visit Provider Nurse Practitioner Family | DX: E11.9 Type 2 diabetes mellitus without complications (principal); E87.1 Hypo-osmolality and hyponatremia | CPT/HCPCS: 80053 ==

== ENCOUNTER → 2024-11-02 10:53 | Outpatient (BNVA) | payer MEDICARE, MEDICAID, SELFPAY | PROVIDERS: PCP Nurse Practitioner Family; Visit Provider Podiatrist Foot & Ankle Surgery | DX: E11.42 Type 2 diabetes mellitus with diabetic polyneuropathy (principal); I73.9 Peripheral vascular disease, unspecified; R60.9 Edema, unspecified; I83.029 Varicose veins of left lower extremity with ulcer of unspecified site; L97.929 Non-pressure chronic ulcer of unspecified part of left lower leg with unspecified severity; E11.8 Type 2 diabetes mellitus with unspecified complications; L98.499 Non-pressure chronic ulcer of skin of other sites with unspecified severity; I87.2 Venous insufficiency (chronic) (peripheral); L60.3 Nail dystrophy | CPT/HCPCS: 11721; 29581 ==

== ENCOUNTER → 2024-11-28 10:45 | Outpatient (BNVA) | payer MEDICARE, MEDICAID, SELFPAY | PROVIDERS: PCP Nurse Practitioner Family; Visit Provider Podiatrist Foot & Ankle Surgery | DX: E11.42 Type 2 diabetes mellitus with diabetic polyneuropathy (principal); I73.9 Peripheral vascular disease, unspecified; R60.9 Edema, unspecified; I83.029 Varicose veins of left lower extremity with ulcer of unspecified site; L97.929 Non-pressure chronic ulcer of unspecified part of left lower leg with unspecified severity; E11.8 Type 2 diabetes mellitus with unspecified complications; L98.499 Non-pressure chronic ulcer of skin of other sites with unspecified severity; I87.2 Venous insufficiency (chronic) (peripheral); L60.3 Nail dystrophy; Z79.4 Long term (current) use of insulin; Z79.84 Long term (current) use of oral hypoglycemic drugs | CPT/HCPCS: 99213 ==

== ENCOUNTER → 2024-11-30 11:57 | Outpatient (BNVA) | payer MEDICARE, MEDICAID, SELFPAY | PROVIDERS: PCP Nurse Practitioner Family; Visit Provider Nurse Practitioner Family | DX: E11.9 Type 2 diabetes mellitus without complications (principal); Z79.899 Other long term (current) drug therapy; L60.3 Nail dystrophy | CPT/HCPCS: 80053; 80061; 83036; 84443; 85025 ==

== ENCOUNTER → 2025-01-11 10:52 | Outpatient (BNVA) | payer MEDICARE, MEDICAID, SELFPAY | PROVIDERS: PCP Nurse Practitioner Family; Visit Provider Podiatrist Foot & Ankle Surgery | DX: E11.42 Type 2 diabetes mellitus with diabetic polyneuropathy (principal); L60.3 Nail dystrophy; I73.9 Peripheral vascular disease, unspecified; R60.9 Edema, unspecified; Z79.84 Long term (current) use of oral hypoglycemic drugs; Z79.4 Long term (current) use of insulin | CPT/HCPCS: 99213 ==

== ENCOUNTER → 2025-01-19 13:46 | Outpatient (BNVA) | payer MEDICARE, MEDICAID, SELFPAY | PROVIDERS: PCP Nurse Practitioner Family; Visit Provider Podiatrist Foot & Ankle Surgery | DX: E11.42 Type 2 diabetes mellitus with diabetic polyneuropathy (principal); R60.9 Edema, unspecified; I73.9 Peripheral vascular disease, unspecified; Z79.84 Long term (current) use of oral hypoglycemic drugs; Z79.4 Long term (current) use of insulin | CPT/HCPCS: 99213 ==